=== PATIENT | male | born 1990 | race Caucasian/White ===

== ENCOUNTER 2018-02-10 12:41 | Outpatient (CLI) | payer SELFPAY ==
[2014-03-07 04:24] VITALS: BP 107/66
--- NOTE | 2018-02-10 17:23 | Diagnostic Imaging Report ---
ALVARO STEELE [facility] [id number] [facility].[address] [address] Report Submission Date: Feb 10, 2018 5:02:18 PM ENROLLMENT NURSE Patient Study Name: LIV WILLIAMSON Date: Feb 10, 2018 11:55:05 AM ENROLLMENT NURSE Modality Type: US Gender: M Description: US SCROTUM : 86 Institution: [facility] Physician: ALVARO STEELE Scrotal ultrasound with Doppler History: Scrotal pain. The patient a history right testicle removal at age 12 Transverse and longitudinal images were obtained through the scrotum. Spectral and color flow imaging was performed. The right testicle is absent. The left testicle demonstrates homogeneous echotexture without evident mass. There is no hydrocele. No epididymal abnormalities are noted. There is normal color flow and there are normal waveforms with regard to the left testicle. Impression: Absent right testicle. Normal left testicle. Normal left epididymis. There is normal flow to the left testicle. Electronically signed on Feb 10, 2018 5:02:18 PM ENROLLMENT NURSE by: Debi HARRISON
== END 2018-02-10 14:54 ==
LOC: RAD 12:41
PROVIDERS: ATTEND Family Medicine
DX: N50.812 Left testicular pain (principal)
CPT/HCPCS: 76870